=== PATIENT | female | born 1965 | race Caucasian/White ===

== ENCOUNTER → 2017-03-18 | Outpatient (CLI) | payer BC ==
[~2017-03-18] MED LIST: LEVOTHYROXINE; LEVOXYL0.025 MG; MOTRIN 200200 MG/TAB PO
== END ==
LOC: MC.RAD 09:16
DX: Z12.31 Encounter for screening mammogram for malignant neoplasm of breast (principal); N63 Unspecified lump in breast

== ENCOUNTER 2021-03-13 06:38 | Outpatient (CLI) | payer BC ==
[2005-08-19 11:05] VITALS: BP 118/90
[2021-03-13] VITALS (7 sets, daily range): BP systolic 114–155; BP diastolic 54–76; PULSE 53–65; TEMP 98
[~2021-03-13] VITALS: Ht 162.6 cm; Wt 76.0 kg
[~2021-03-13 06:38] MED LIST changes: -LEVOXYL0.025 MG; +LEVOXYL0.088 MG PO
[2021-03-13] MEDS ORDERED: TOPROL XL100 MG PO (07:06)
[2021-03-13] MEDS ORDERED: HCTZ 25MG TAB25 MG PO (07:07)
[2021-03-13 07:29] LABS: HEMATOCRIT 45.8 % (37.0-47.0); HEMOGLOBIN 15.8 g/dl (12.5-16.0); MEAN CELL VOLUME 101 fl (80.0-100.0); MEAN CORPUSCULAR HEMOGLOBIN 35 pg (27.0-31.0); MEAN CORPUSCULAR HGB CONC 35 g/dl (33.0-37.0); MEAN PLATELET VOLUME 10.1 fl (7.4-10.4); PLATELET COUNT 200 K/mm3 (130-400); RED BLOOD COUNT 4.52 M/mm3 (4.10-5.30)
[2021-03-13 07:39] LABS: CALCIUM 9.3 mg/dL (8.4-10.2); CREATININE, serum 0.75 (0.52-1.25)
[2021-03-13 08:07] LABS: PROTHROMBIN TIME 11.4 SECONDS (9.7-12.8)
[2021-03-13] MEDS ORDERED: COZAAR100 MG PO ×2 (09:06→09:18)
[2021-03-13] MEDS ORDERED: ASPIRIN E.C. 8181 MG PO (09:07)
[2021-03-13] MEDS ORDERED: TOPROL XL 50MG50 MG PO (09:18)
== END 2021-03-13 10:30 | disposition home or self-care (01) ==
LOC: COL.RAD 06:38
PROVIDERS: Internal Medicine Cardiovascular Disease
DX: I35.1 Nonrheumatic aortic (valve) insufficiency (principal)
CPT/HCPCS: J2704

== ENCOUNTER → 2024-03-11 | Outpatient (CLI) | payer OTHER ==
[~2024-03-11] MED LIST changes: +ASPIRIN E.C. 8181 MG PO; +COZAAR100 MG PO; +HCTZ 25MG TAB25 MG PO; +TOPROL XL 50MG50 MG PO; +TOPROL XL100 MG PO
== END ==
LOC: MC.RAD 08:15
DX: Z12.31 Encounter for screening mammogram for malignant neoplasm of breast (principal)